=== PATIENT | male | born 1985 | race Caucasian/White ===

== ENCOUNTER 2022-01-23 18:23 | Inpatient (IN) | payer MEDICAID ==
[~2022-01-23] VITALS: Ht 165.1 cm; Wt 55.4 kg
[2022-01-23 18:51] LABS: ABG BASE EXCESS 3.6 mmol/L; ABG HCO3 26.9 mmol/L; ABG PH 7.492 (7.350-7.450); ABG SITE RIGHT RADIAL; ABG TOTAL HEMOGLOBIN 10.7 G/dL (13.5-18.0); COHb 0.1 % (0.5-1.5); MetHb 0.3 % (0.0-1.5); O2Hb 90.9 % (94.0-97.0); VENT MODE VENT - A/C; VT, ABG 500 mL
--- NOTE | 2022-01-23 19:00 | NUR ---
started 20g IV left AC, rey bloods, Cultures, and lactic -- gave to blood and plasma laboratory assistant.
[2022-01-23 19:12] LABS: HEMATOCRIT 31.2 % (36.7-47.1); MEAN CORPUSCULAR VOLUME 90.5 fL (73.0-96.2); PLATELET COUNT (AUTO) 356 K/uL (152-348)
[2022-01-23 19:31] LABS: ALANINE AMINOTRANSFERASE 21 U/L (16-63); ALKALINE PHOSPHATASE 103 U/L (50-136); ASPARTATE AMINOTRANSFERASE 13 U/L (15-37); BILIRUBIN,DIRECT 0.1 mg/dL (0.0-0.2); BILIRUBIN,TOTAL 0.3 mg/dL (0.2-1.0); CARBON DIOXIDE 28 mmol/L (21-32); CHLORIDE 96 mmol/L (98-107); CREATININE 0.7 mg/dL (0.6-1.3); GLUCOSE 129 mg/dL (74-106); POTASSIUM 4.4 mmol/L (3.5-5.1); TOTAL PROTEIN, SERUM 8.3 g/dL (6.4-8.2); UREA NITROGEN, BLOOD 17 mg/dL (7-18)
[2022-01-23] MEDS ORDERED: ATOV750O4 GT (20:03)
[2022-01-23] MEDS ORDERED: ACET-2154 GT (20:03)
[2022-01-23] MEDS ORDERED: LEVE500S9 GT (20:03)
[2022-01-23] MEDS ORDERED: ASCO500C18 GT (20:03)
[2022-01-23] MEDS ORDERED: POLY17PO4 GT (20:03)
[2022-01-23] MEDS ORDERED: MULT-594 GT (20:03)
[2022-01-23] MEDS ORDERED: FAMO20TA8 GT (20:03)
[2022-01-23] MEDS ORDERED: FOLI1TAB94 GT (20:03)
[2022-01-23] MEDS ORDERED: CYAN10006 IM (20:03)
[2022-01-23] MEDS ORDERED: PROP20TA7 GT (20:03)
[2022-01-23] MEDS ORDERED: BICT1TAB GT (20:03)
[2022-01-23] MEDS ORDERED: CLIN300C12 GT (20:03)
[2022-01-23] MEDS ORDERED: [UNRECOGNIZED DRUG - CODE] OP (20:03)
[2022-01-23] MEDS ORDERED: FLUC10SU GT (20:03)
[2022-01-23] MEDS ORDERED: EPOE1VIA12 IJ (20:03)
[2022-01-23] MEDS ORDERED: SCOP1PAT13 TD (20:03)
[2022-01-23] MEDS ORDERED: BISA10SU61 RC (20:03)
[2022-01-23] MEDS ORDERED: norco GT (20:03)
[2022-01-23] MEDS ORDERED: CEFTRIAXONE 2 G in IV DEXTROSE 5% 100 ML IV ONE (20:15)
[2022-01-23] MEDS ORDERED: VANCOMYCIN IV 1,000 MG in IV DEXTROSE 5% 250 ML IV ONE (20:15)
[2022-01-23] MEDS ORDERED: DEXAMETHASONE SOD PHOSPHATE 4 MG INJ IV ONE (20:15)
[2022-01-23] MEDS ORDERED: IV NORMAL SALINE 1000 ML BAG IV ONE (20:15)
[2022-01-23] MEDS ORDERED: CEFTRIAXONE /D5W 50ML IVPB **ER PYXIS IV ONE (20:38)
[2022-01-23] MEDS ORDERED: DEXAMETHASONE SOD PHOSPHATE 10 MG INJ ONE (20:38)
--- NOTE | 2022-01-23 21:16 | NUR ---
phone # of mother
[2022-01-23] MEDS ORDERED: VANCOMYCIN IV 200 ML ONE (21:35)
[2022-01-23] MEDS ORDERED: ONDANSETRON 4 MG/2 ML VIAL IV PRN (22:15)
[2022-01-23] MEDS ORDERED: ACETAMINOPHEN 650 MG SUPP.RECT RC PRN (22:15)
[2022-01-23] MEDS ORDERED: MORPHINE SULFATE 2 MG/1 ML DISP.SYRIN IV PRN (22:15)
[2022-01-23] MEDS ORDERED: MAGNESIUM HYDROXIDE 30 ML LIQUID UDC PO PRN (22:15)
[2022-01-23] MEDS ORDERED: REMEDY ESSENTIAL ZINC PASTE 113 GM TP PRN (22:15)
[2022-01-23] MEDS ORDERED: HYDROCODONE/APAP 5-325MG TABLET GT PRN (22:15)
--- NOTE | 2022-01-24 01:48 | NUR ---
report given to Megan DUPONT
[2022-01-24 02:55] VITALS: BP 131/81
--- NOTE | 2022-01-24 02:55 | NUR ---
RECEIVED PATIENT VIA GURNEY. ADMITTED TO ROOM 305 -TELEMETRY, UNDER CARE OF MIHIR RAMOS EROSION CONTROL COORDINATOR FOR FACILITY ACQUIRED PNEUMONIA. PATIENT IS NONVERBAL BUT HAS EYE OPENING RESPONSE TO PAIN. ON MECHANICAL VENTILATOR, SATURATING AT 97%. ATTACHED TO TELEMETRY, SHOWING SINUS RHYTHM. WITH GTUBE, PATENT AND INTACT. WITH KELLY CATHETER, DRAINING CLEAR YELLOW URINE. IV ACCESS TO THE L AC GAUGE 20, STARTED ON NS AT 75CC/HR. SKIN ISSUES NOTED, PHOTOS TAKEN AND ATTACHED TO CHART. WOUND CONSULT ORDERED. [employer] MATTRESS ORDERED. SAFETY AND ASPIRATION PRECAUTIONS IN PLACE .WILL CONTINUE TO MONITOR.
--- NOTE | 2022-01-24 03:02 | NUR ---
pt taken to room 305 via edgardo with RT.
[2022-01-24] MEDS: IV NS 1000 ML 1,000 ML IV PRN (03:40)
[2022-01-24] MEDS: ENOXAPARIN SODIUM 40 MG/0.4 ML DISP.SYRIN SQ SCH ×2 (03:52→20:33)
[2022-01-24 06:03] LABS: HEMATOCRIT 26.7 % (36.7-47.1); MEAN CORPUSCULAR HEMOGLOBIN 29.3 uug (23.8-33.4); PLATELET COUNT (AUTO) 282 K/uL (152-348)
--- NOTE | 2022-01-24 06:26 | NUR ---
NO ACUTE DISTRESS NOTED DURING SHIFT. URINE COLLECTED AND SENT TO LAB. SAFETY PRECAUTIONS MAINTAINED WILL ENDORSE TO DAYSHIFT.
[2022-01-24 06:36] LABS: CARBON DIOXIDE 25 mmol/L (21-32); CHLORIDE 100 mmol/L (98-107); CREATININE 0.5 mg/dL (0.6-1.3); GLUCOSE 153 mg/dL (74-106); POTASSIUM 4.1 mmol/L (3.5-5.1); UREA NITROGEN, BLOOD 13 mg/dL (7-18)
[2022-01-24 07:16] LABS: *BILIRUBIN,URIN NEGATIVE (NEGATIVE); *BLOOD, URINE 3+ (NEGATIVE); *CLARITY,URINE CLOUDY (CLEAR); *COLOR,URINE YELLOW (YELLOW); *KETONES,URINE NEGATIVE (NEGATIVE); *UROBILINOGEN,URINE 0.2 E.U./dl (NORMAL); LEUKOCYTE ESTERASE ,URINE NEGATIVE (NEGATIVE); NITRITE, URINE NEGATIVE (NEGATIVE); PH,URINE 7.5 (5.0-8.0); UGLUCOSE NEGATIVE (NEGATIVE)
[2022-01-24 07:28] LABS: RBC,URINE 50-80 /HPF (0-3)
[2022-01-24 07:29] LABS: BACTERIA,URINE FEW /HPF (NONE SEEN); RED BLOOD CELL CASTS,URINE 0-3 /LPF (NONE SEEN); SQUAMOUS EPITHELIAL CELL,UR FEW /HPF (NONE SEEN); WBC,URINE 0-3 /HPF (0-3)
[2022-01-24] MEDS ORDERED: MIRALAX 17 GM POWD.PACK GT PRN (08:30)
[2022-01-24] MEDS ORDERED: ACETAMINOPHEN 325 MG TABLET-SA PATIENTS-PAIN ONLY GT PRN (08:30)
[2022-01-24] MEDS ORDERED: BISACODYL 10 MG SUPP.RECT RC PRN (08:30)
[2022-01-24] MEDS ORDERED: PANTOPRAZOLE SODIUM 40 MG VIAL IV SCH (09:00)
[2022-01-24] MEDS ORDERED: ATOVAQUONE 750 MG GT SCH (09:00)
[2022-01-24] MEDS ORDERED: CEFEPIME HCL 1 G in IV DEXTROSE 5% 50 ML IV SCH (09:00)
[2022-01-24] MEDS ORDERED: levETIRAcetam 500 MG/5 ML LIQUID UDC GT ONE (09:00)
[2022-01-24] MEDS ORDERED: LEVETIRACETAM 1500 MG GT SCH (09:00)
[2022-01-24] MEDS ORDERED: Bictegrav/Emtricit/Tenofov Ala (Biktarvy 50-200-25 mg Ta GT SCH (09:00)
[2022-01-24] MEDS: CEFEPIME HCL 2 G in IV DEXTROSE 5% 100 ML IV SCH ×2 (09:41→20:31)
[2022-01-24] MEDS: FOLIC ACID 1 MG TABLET GT SCH (09:51)
[2022-01-24] MEDS: FAMOTIDINE 20 MG TABLET GT SCH (09:52)
[2022-01-24] MEDS: VANCOMYCIN IV 1,000 MG in IV DEXTROSE 5% 250 ML IV SCH ×2 (09:52→22:22)
[2022-01-24 11:00] VITALS: BP 132/80
[2022-01-24] MEDS: SCOPOLAMINE PATCH 1 MG/72 HRS PATCH TD SCH (11:12)
[2022-01-24] MEDS: BIKTARVY GT SCH (13:16)
[2022-01-24] MEDS: ACETAMINOPHEN 650 MG/20.3 ML LIQUID UDC GT PRN (13:16)
[2022-01-24] MEDS: [UNRECOGNIZED DRUG - OTHER] GT SCH (13:16)
[2022-01-24] MEDS: SODIUM HYPOCHLORITE 0.25% (HALF STRENGTH) 480 ML BOTTLE TOP SCH (13:16)
[2022-01-24] MEDS: PROPRANOLOL HCL 20 MG TABLET GT SCH ×2 (13:18→22:23)
--- NOTE | 2022-01-24 14:54 | NUR ---
Pt is nonverbal, upper and lower extremities stiff. DVT pumps placed on patient. Family at bedside. Wound consult complete, pt will have debridement tomorrow for right ischium and a biopsy for the left forearm. Consents have been signed by pt's mother at bedside. Oral care done Q2, suctioned as needed. Comfort measures provided. Will continue to monitor. Per mother, prior to admission at [facility], pt was healthy 4 months ago, he was complaining of severe headache and went to [facility]. There, they did an MRI and spinal tap due to increased intracranial pressure and removed cerebrospinal fluid several times. Pt's heart stopped for 26 minutes and he became comatose and vent dependent afterwords.
[2022-01-24 16:00] VITALS: BP 142/90
[2022-01-24] MEDS: ATOVAQUONE 1500 MG GT SCH (17:03)
[2022-01-24] MEDS: [UNRECOGNIZED DRUG - OTHER] GT SCH (17:03)
--- NOTE | 2022-01-24 19:15 | NUR ---
Received patient on bed, alert, open his eyes when call, no verbal response, with decortication of both upper extremities, stiffness of both lower extremities noted. Not in distress, for suctioning PRN. No signs of pain noted. Repositioned done.
[2022-01-24 20:00] VITALS: BP 144/75
[2022-01-24] MEDS: levETIRAcetam 500 MG/5 ML LIQUID UDC GT SCH (22:23)
[2022-01-25] VITALS: BP 149/94
[2022-01-25 04:00] VITALS: BP 140/67
[2022-01-25] MEDS: PROPRANOLOL HCL 20 MG TABLET GT SCH ×3 (05:26→22:57)
--- NOTE | 2022-01-25 06:16 | NUR ---
Not in respiratory distress, suctioning of oral and tracheal secretions PRN, repositioned every 2 hours. Dressing of wound done as ordered. Patient in fair condition.
[2022-01-25 06:27] LABS: HEMATOCRIT 24.2 % (36.7-47.1); MEAN CORPUSCULAR HEMOGLOBIN 29.6 uug (23.8-33.4); MEAN CORPUSCULAR VOLUME 90.9 fL (73.0-96.2); PLATELET COUNT (AUTO) 249 K/uL (152-348)
[2022-01-25] MEDS ORDERED: SILVER NITRATE APPLICATOR STICK EACH TP ONE (06:30)
[2022-01-25] MEDS ORDERED: LIDOCAINE 1%-EPI 1:100,000 20 ML VIAL IJ PRN (06:30)
[2022-01-25 06:40] LABS: CARBON DIOXIDE 28 mmol/L (21-32); CHLORIDE 104 mmol/L (98-107); CREATININE 0.5 mg/dL (0.6-1.3); GLUCOSE 113 mg/dL (74-106); POTASSIUM 3.3 mmol/L (3.5-5.1); UREA NITROGEN, BLOOD 11 mg/dL (7-18)
[2022-01-25] MEDS ORDERED: SILVER NITRATE APPLICATOR STICK EACH TP PRN (07:47)
[2022-01-25] MEDS: CEFEPIME HCL 2 G in IV DEXTROSE 5% 100 ML IV SCH ×2 (09:05→22:52)
[2022-01-25] MEDS: POTASSIUM CHLORIDE 50 ML IV SCH ×4 (09:05→12:25)
[2022-01-25] MEDS: FAMOTIDINE 20 MG TABLET GT SCH (09:11)
[2022-01-25] MEDS: FOLIC ACID 1 MG TABLET GT SCH (09:11)
[2022-01-25] MEDS: levETIRAcetam 500 MG/5 ML LIQUID UDC GT SCH ×2 (09:12→22:51)
[2022-01-25] MEDS: [UNRECOGNIZED DRUG - OTHER] GT SCH ×2 (09:12→17:51)
[2022-01-25] MEDS: ATOVAQUONE 1500 MG GT SCH ×2 (09:12→17:51)
[2022-01-25] MEDS: BIKTARVY GT SCH (09:13)
[2022-01-25] MEDS: [UNRECOGNIZED DRUG - OTHER] GT SCH (09:13)
[2022-01-25] MEDS: ACETAMINOPHEN 650 MG/20.3 ML LIQUID UDC GT PRN (09:13)
[2022-01-25] MEDS: SODIUM HYPOCHLORITE 0.25% (HALF STRENGTH) 480 ML BOTTLE TOP SCH (09:15)
[2022-01-25] MEDS: VANCOMYCIN IV 1,000 MG in IV DEXTROSE 5% 250 ML IV SCH ×2 (10:19→22:52)
[2022-01-25 12:00] VITALS: BP 142/94
[2022-01-25] MEDS: IPRATROPIUM BROMIDE 0.5 MG/2.5 ML NEBU NEB PRN ×3 (15:51→23:26)
[2022-01-25] MEDS: ALBUTEROL SULFATE 2.5 MG/3 ML NEBU NEB PRN ×3 (15:51→23:26)
--- NOTE | 2022-01-25 16:00 | NUR ---
Biopsy and debridement done today.
[2022-01-25 16:12] VITALS: BP 146/89
--- NOTE | 2022-01-25 16:57 | NUR ---
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
[2022-01-25] MEDS ORDERED: EPOETIN ALFA-EPBX 10,000 UNIT/ML VIAL IV SCH (18:00)
[2022-01-25] MEDS ORDERED: EPOETIN ALFA 10,000 UNITS/ML VIAL IV SCH (18:00)
[2022-01-25] MEDS: GLUCERNA 1.2 1000ML LIQUID GT PRN (18:10)
[2022-01-25] MEDS: IV NS 1000 ML 1,000 ML IV PRN (18:42)
--- NOTE | 2022-01-25 19:30 | NUR ---
rounds made patient in bed . vent dependent tolerating vent setting no respiratory distress noted . patient brother and sister in law at b/s questions answered .
[2022-01-25 20:25] VITALS: BP 133/90
--- NOTE | 2022-01-25 20:30 | NUR ---
incontinent on stool had a large brownish colored soft stool . changed soiled linens and gown . right and left buttocks wound care dressing done and follow wound care treatment . placed air loss mattress with survey operations director help .
[2022-01-25] MEDS: THERAHONEY GEL 1.5 OZ TUBE TOP SCH (21:15)
--- NOTE | 2022-01-25 21:17 | NUR ---
informed respiratory therapist patient need respiratory culture via trach aspirate for gram stain ,obtained sample and specimen send to lab .
--- NOTE | 2022-01-25 22:00 | NUR ---
seen by infectious disease FURNACE FEEDER TASHA with orders .
[2022-01-25] MEDS ORDERED: FLUCONAZOLE 200 MG TABLET PO SCH (22:30)
[2022-01-25] MEDS: MUPIROCIN 2% OINT 22 GM TUBE NS SCH (22:51)
[2022-01-25] MEDS: ENOXAPARIN SODIUM 40 MG/0.4 ML DISP.SYRIN SQ SCH (22:59)
[2022-01-26] MEDS ORDERED: FLUCONAZOLE 100 MG TABLET ONE (00:11)
[2022-01-26 00:15] VITALS: BP 106/81
[2022-01-26] MEDS: ALBUTEROL SULFATE 2.5 MG/3 ML NEBU NEB PRN ×6 (03:34→23:12)
[2022-01-26] MEDS: IPRATROPIUM BROMIDE 0.5 MG/2.5 ML NEBU NEB PRN ×6 (03:34→23:12)
[2022-01-26 04:28] VITALS: BP 120/85
[2022-01-26] MEDS: PROPRANOLOL HCL 20 MG TABLET GT SCH ×3 (05:28→21:08)
[2022-01-26] MEDS: FOLIC ACID 1 MG TABLET GT SCH (08:42)
[2022-01-26] MEDS: [UNRECOGNIZED DRUG - OTHER] GT SCH ×2 (08:42→18:14)
[2022-01-26] MEDS: ATOVAQUONE 1500 MG GT SCH ×2 (08:42→18:14)
[2022-01-26] MEDS: FAMOTIDINE 20 MG TABLET GT SCH (08:42)
[2022-01-26] MEDS: BIKTARVY GT SCH (08:43)
[2022-01-26] MEDS: [UNRECOGNIZED DRUG - OTHER] GT SCH (08:43)
[2022-01-26] MEDS: CEFEPIME HCL 2 G in IV DEXTROSE 5% 100 ML IV SCH ×2 (08:43→20:38)
[2022-01-26] MEDS: MUPIROCIN 2% OINT 22 GM TUBE NS SCH ×2 (08:43→20:39)
[2022-01-26] MEDS: THERAHONEY GEL 1.5 OZ TUBE TOP SCH (09:00)
[2022-01-26] MEDS: SODIUM HYPOCHLORITE 0.25% (HALF STRENGTH) 480 ML BOTTLE TOP SCH (09:00)
[2022-01-26 09:09] LABS: CARBON DIOXIDE 29 mmol/L (21-32); CHLORIDE 103 mmol/L (98-107); CREATININE 0.5 mg/dL (0.6-1.3); GLUCOSE 108 mg/dL (74-106); POTASSIUM 3.6 mmol/L (3.5-5.1); UREA NITROGEN, BLOOD 11 mg/dL (7-18)
[2022-01-26 09:10] LABS: MEAN CORPUSCULAR HEMOGLOBIN 29.7 uug (23.8-33.4); MEAN CORPUSCULAR VOLUME 91.1 fL (73.0-96.2); PLATELET COUNT (AUTO) 291 K/uL (152-348)
--- NOTE | 2022-01-26 10:00 | NUR ---
RIGHT BUTTOCK AND L ISCHIUM WOUND TREATMENT DONE.
[2022-01-26] MEDS: levETIRAcetam 500 MG/5 ML LIQUID UDC GT SCH ×2 (10:06→20:38)
[2022-01-26] MEDS: VANCOMYCIN IV 1,000 MG in IV DEXTROSE 5% 250 ML IV SCH ×2 (10:30→21:08)
[2022-01-26 11:55] VITALS: BP 115/80
[2022-01-26 16:00] VITALS: BP 132/71
[2022-01-26 19:48] VITALS: BP 112/74
[2022-01-26] MEDS: FLUCONAZOLE 200 MG TABLET PO SCH (20:38)
[2022-01-26] MEDS: ENOXAPARIN SODIUM 40 MG/0.4 ML DISP.SYRIN SQ SCH (20:43)
[2022-01-26] MEDS: IV NS 1000 ML 1,000 ML IV PRN (22:55)
[2022-01-27 00:02] VITALS: BP 109/77
[2022-01-27] MEDS: IPRATROPIUM BROMIDE 0.5 MG/2.5 ML NEBU NEB PRN ×6 (03:15→23:07)
[2022-01-27] MEDS: ALBUTEROL SULFATE 2.5 MG/3 ML NEBU NEB PRN ×6 (03:15→23:07)
[2022-01-27 04:32] VITALS: BP 111/79
[2022-01-27] MEDS: PROPRANOLOL HCL 20 MG TABLET GT SCH ×3 (05:43→22:07)
[2022-01-27 06:25] LABS: HEMATOCRIT 24.4 % (36.7-47.1); MEAN CORPUSCULAR HEMOGLOBIN 29.7 uug (23.8-33.4); MEAN CORPUSCULAR VOLUME 91.1 fL (73.0-96.2); PLATELET COUNT (AUTO) 228 K/uL (152-348)
[2022-01-27 06:29] LABS: CARBON DIOXIDE 25 mmol/L (21-32); CHLORIDE 102 mmol/L (98-107); CREATININE 0.5 mg/dL (0.6-1.3); GLUCOSE 115 mg/dL (74-106); MAGNESIUM 1.9 mg/dL (1.8-2.4); PHOSPHOROUS 3.9 mg/dL (2.5-4.9); POTASSIUM 3.4 mmol/L (3.5-5.1); UREA NITROGEN, BLOOD 12 mg/dL (7-18)
[2022-01-27] MEDS: [UNRECOGNIZED DRUG - OTHER] GT SCH ×2 (09:06→17:25)
[2022-01-27] MEDS: ATOVAQUONE 1500 MG GT SCH ×2 (09:06→17:25)
[2022-01-27] MEDS: levETIRAcetam 500 MG/5 ML LIQUID UDC GT SCH ×2 (09:06→21:00)
[2022-01-27] MEDS: FOLIC ACID 1 MG TABLET GT SCH (09:06)
[2022-01-27] MEDS: FAMOTIDINE 20 MG TABLET GT SCH (09:06)
[2022-01-27] MEDS: CEFEPIME HCL 2 G in IV DEXTROSE 5% 100 ML IV SCH ×2 (09:07→21:00)
[2022-01-27] MEDS: SODIUM HYPOCHLORITE 0.25% (HALF STRENGTH) 480 ML BOTTLE TOP SCH (09:07)
[2022-01-27] MEDS: THERAHONEY GEL 1.5 OZ TUBE TOP SCH (09:07)
[2022-01-27] MEDS: MUPIROCIN 2% OINT 22 GM TUBE NS SCH ×2 (09:07→21:00)
[2022-01-27] MEDS ORDERED: POTASSIUM CHLORIDE 20 MEQ POWDER PACKET GT ONE (11:00)
[2022-01-27] MEDS: VANCOMYCIN IV 1,000 MG in IV DEXTROSE 5% 250 ML IV SCH ×2 (11:00→22:07)
[2022-01-27] MEDS: SCOPOLAMINE PATCH 1 MG/72 HRS PATCH TD SCH (11:40)
[2022-01-27 12:50] VITALS: BP 108/74
[2022-01-27 16:39] VITALS: BP 106/77
--- NOTE | 2022-01-27 17:02 | NUR ---
WOUND CULTURE COLLECTED AND SENT TO THE LAB
[2022-01-27 20:07] VITALS: BP 113/73
[2022-01-27] MEDS: FLUCONAZOLE 200 MG TABLET PO SCH (21:00)
[2022-01-27] MEDS: ENOXAPARIN SODIUM 40 MG/0.4 ML DISP.SYRIN SQ SCH (21:01)
[2022-01-28 00:12] VITALS: BP 109/68
[2022-01-28 04:18] VITALS: BP 117/78
--- NOTE | 2022-01-28 05:08 | NUR ---
uneventful night. pt tolerated feeding well; wound treatment done; no acute distress noted; repositioned pt q2h.
[2022-01-28] MEDS: PROPRANOLOL HCL 20 MG TABLET GT SCH ×3 (06:25→22:10)
[2022-01-28] MEDS: ALBUTEROL SULFATE 2.5 MG/3 ML NEBU NEB PRN ×5 (07:43→23:35)
[2022-01-28] MEDS: IPRATROPIUM BROMIDE 0.5 MG/2.5 ML NEBU NEB PRN ×5 (07:43→23:34)
--- NOTE | 2022-01-28 08:00 | NUR ---
received on trache to vent with same settings, responds to tactile stimuli, on continuous pulse oximetry sat at 100%, head of bed elevated, GT clamped at this time as per schedule, no distress noted, safety measures maintained, repositioned for comfort
[2022-01-28] MEDS: FOLIC ACID 1 MG TABLET GT SCH (09:43)
[2022-01-28] MEDS: levETIRAcetam 500 MG/5 ML LIQUID UDC GT SCH ×2 (09:43→20:07)
[2022-01-28] MEDS: FAMOTIDINE 20 MG TABLET GT SCH (09:43)
[2022-01-28] MEDS: MUPIROCIN 2% OINT 22 GM TUBE NS SCH ×2 (09:46→20:08)
[2022-01-28] MEDS: THERAHONEY GEL 1.5 OZ TUBE TOP SCH (09:47)
[2022-01-28] MEDS: SODIUM HYPOCHLORITE 0.25% (HALF STRENGTH) 480 ML BOTTLE TOP SCH (09:47)
[2022-01-28 09:53] LABS: MEAN CORPUSCULAR HEMOGLOBIN 29.6 uug (23.8-33.4); MEAN CORPUSCULAR VOLUME 91.5 fL (73.0-96.2); PLATELET COUNT (AUTO) 257 K/uL (152-348)
[2022-01-28] MEDS: CEFEPIME HCL 2 G in IV DEXTROSE 5% 100 ML IV SCH ×2 (09:57→20:07)
[2022-01-28 10:01] LABS: MAGNESIUM 1.9 mg/dL (1.8-2.4); PHOSPHOROUS 3.6 mg/dL (2.5-4.9)
[2022-01-28 10:02] LABS: CARBON DIOXIDE 29 mmol/L (21-32); CHLORIDE 103 mmol/L (98-107); CREATININE 0.5 mg/dL (0.6-1.3); GLUCOSE 109 mg/dL (74-106); POTASSIUM 3.8 mmol/L (3.5-5.1); UREA NITROGEN, BLOOD 11 mg/dL (7-18); VANCOMYCIN,TROUGH 20.4 ug/mL (12.0-20.0)
[2022-01-28] MEDS: [UNRECOGNIZED DRUG - OTHER] GT SCH ×2 (10:05→17:16)
[2022-01-28] MEDS: ATOVAQUONE 1500 MG GT SCH ×2 (10:05→17:16)
[2022-01-28] MEDS: GLUCERNA 1.2 1000ML LIQUID GT PRN (11:06)
[2022-01-28 11:33] LABS: EOSINOPHILS % (MANUAL) 1 % (0-8); LYMPHOCYTES % (MANUAL) 24 % (20-40); MONOCYTES % (MANUAL) 10 % (2-10); NEUTROPHILS % (MANUAL) 65 % (42-75)
[2022-01-28 12:03] VITALS: BP 110/79
--- NOTE | 2022-01-28 13:00 | NUR ---
right and left ischium wounds treatment done ad ordered, left arm wound done as well, repositioned to side with pillows for support, mom at bedside, tolerating tube fdg well, no residual noted
[2022-01-28] MEDS: BIKTARVY GT SCH (14:48)
[2022-01-28] MEDS: VANCOMYCIN IV 750 MG in IV DEXTROSE 5% 250 ML IV SCH (15:01)
[2022-01-28 16:00] VITALS: BP 105/78
--- NOTE | 2022-01-28 18:03 | NUR ---
no distress noted, vent on same settings- sat at 99%, all needs attended and met, repositioned q 2h for comfort, tolerating tube feeding well, no residual noted, all needs attended and met
--- NOTE | 2022-01-28 19:30 | NUR ---
rounds made patient in bed , open eyes non verbal and doesn't follow commands upper and lower extremities flaccid no spontaneous movement . trach to vent Portex no . 7 ac18 tv 500 peep 5 fio2 40% tolerating vent settings no respiratory distress noted, no s/s of respiratory distress tube feeding Glucerna 1.2 in progress via the peg rate 60 ml/hr . f/c to bsd .
--- NOTE | 2022-01-28 19:35 | NUR ---
Sudheer HYLTON NURSE came and inserted left upper arm midline no.18
[2022-01-28] MEDS: FLUCONAZOLE 200 MG TABLET PO SCH (20:08)
[2022-01-28] MEDS: ENOXAPARIN SODIUM 40 MG/0.4 ML DISP.SYRIN SQ SCH (20:14)
--- NOTE | 2022-01-28 20:15 | NUR ---
patient son and patient sister in law came and questions answered .stayed in the room .
[2022-01-28 20:42] VITALS: BP 112/80
[2022-01-29 00:14] VITALS: BP 121/82
[2022-01-29] MEDS: VANCOMYCIN IV 750 MG in IV DEXTROSE 5% 250 ML IV SCH ×2 (02:22→14:26)
--- NOTE | 2022-01-29 03:30 | NUR ---
am care done with cnas help ,changed soiled linens and gown incontinent of stool ,large amt soft brownish stool . wound dressing done and follow wound care treatment .
[2022-01-29 05:00] VITALS: BP 112/80
[2022-01-29] MEDS: PROPRANOLOL HCL 20 MG TABLET GT SCH ×3 (05:43→23:05)
[2022-01-29 06:16] LABS: HEMATOCRIT 27.7 % (36.7-47.1); MEAN CORPUSCULAR HEMOGLOBIN 29.4 uug (23.8-33.4); MEAN CORPUSCULAR VOLUME 91.3 fL (73.0-96.2); PLATELET COUNT (AUTO) 234 K/uL (152-348)
[2022-01-29 06:42] LABS: CARBON DIOXIDE 31 mmol/L (21-32); CHLORIDE 102 mmol/L (98-107); CREATININE 0.6 mg/dL (0.6-1.3); GLUCOSE 115 mg/dL (74-106); UREA NITROGEN, BLOOD 10 mg/dL (7-18)
[2022-01-29] MEDS: ALBUTEROL SULFATE 2.5 MG/3 ML NEBU NEB PRN ×5 (07:28→23:36)
[2022-01-29] MEDS: IPRATROPIUM BROMIDE 0.5 MG/2.5 ML NEBU NEB PRN ×5 (07:28→23:36)
--- NOTE | 2022-01-29 07:49 | NUR ---
Awake, opens eyes. Trach to vent with settings of AC 18, TV 500, PEEP 5, FIO2 40%. GT intact.
[2022-01-29] MEDS: BIKTARVY GT SCH (09:03)
[2022-01-29] MEDS: FOLIC ACID 1 MG TABLET GT SCH (09:03)
[2022-01-29] MEDS: CEFEPIME HCL 2 G in IV DEXTROSE 5% 100 ML IV SCH ×2 (09:03→20:42)
[2022-01-29] MEDS: levETIRAcetam 500 MG/5 ML LIQUID UDC GT SCH ×2 (09:03→20:42)
[2022-01-29] MEDS: [UNRECOGNIZED DRUG - OTHER] GT SCH ×2 (09:03→17:03)
[2022-01-29] MEDS: ATOVAQUONE 1500 MG GT SCH ×2 (09:03→17:03)
[2022-01-29] MEDS: FAMOTIDINE 20 MG TABLET GT SCH (09:03)
[2022-01-29] MEDS: SODIUM HYPOCHLORITE 0.25% (HALF STRENGTH) 480 ML BOTTLE TOP SCH (09:04)
[2022-01-29] MEDS: MUPIROCIN 2% OINT 22 GM TUBE NS SCH ×2 (09:04→20:32)
[2022-01-29] MEDS: THERAHONEY GEL 1.5 OZ TUBE TOP SCH (09:05)
--- NOTE | 2022-01-29 09:30 | NUR ---
Vomited after giving meds, maybe coughing induced. Suctioned and head elevated more. With BM to liquid stool. Incontinence care and bed bath given. Wound care done as ordered. Repositioned comfortably.
[2022-01-29 09:55] LABS: BILIRUBIN,DIRECT 0.1 mg/dL (0.0-0.2); BILIRUBIN,TOTAL 0.2 mg/dL (0.2-1.0)
[2022-01-29] MEDS: GLUCERNA 1.2 1000ML LIQUID GT PRN (10:25)
--- NOTE | 2022-01-29 12:00 | NUR ---
Secretions suctions. Turned to sides at interval
[2022-01-29 12:13] VITALS: BP 114/79
--- NOTE | 2022-01-29 13:00 | NUR ---
CD4 requested with bypass paper sent to lab. Mirella JUAREZ seen patient explained to mother at bedside. Consent for resection of left forearm mass with skin graft versus flap reconstruction not yet by mother until she speaks with Dr. Adhikari
--- NOTE | 2022-01-29 14:00 | NUR ---
With BM to loose stool in small amount. Incontinence care done. Wound care done. Repositioned comfortably
[2022-01-29 15:59] VITALS: BP 120/82
--- NOTE | 2022-01-29 17:25 | NUR ---
PT REMAINS STABLE ON CMV, PORTEX # 7 TRACH IS PATENT AND SECURE. IN-LINE TX'S GIVEN Q4 PER PT'S MOTHER REQUEST. SPO2 AND RESPIRATIONS WNL. CONTINUOUS PULSE OX AT BEDSIDE. NO SIGNS OR SYMPTOMS OF RESPIRATORY DISTRESS NOTED DURING SHIFT. TRACH/ORAL SXN PRN. WILL CONTINUE TO MONITOR AND FOLLOW CURRENT RESPIRATORY TREATMENTS ORDERED.
[2022-01-29] MEDS ORDERED: EPOETIN ALFA-EPBX 10,000 UNIT/ML VIAL SQ SCH (18:00)
--- NOTE | 2022-01-29 18:25 | NUR ---
Secretions suctioned. Oral care done. Repositioned comfortably.
--- NOTE | 2022-01-29 19:35 | NUR ---
Patient non verbal, hob elevated, GTF tolerate well. no residual noted, no vomiting noted, cont abx for PNA with adverse reaction noted, Patient on tele monitor sinus rhythm, on vent as ordered, no sob no chest pain noted, no s/s of pain, cont to monitor.
[2022-01-29 20:00] VITALS: BP 108/67
[2022-01-29] MEDS: FLUCONAZOLE 200 MG TABLET PO SCH (20:32)
[2022-01-29] MEDS: ENOXAPARIN SODIUM 40 MG/0.4 ML DISP.SYRIN SQ SCH (20:53)
[2022-01-30] VITALS: BP 116/79
[2022-01-30] MEDS: IPRATROPIUM BROMIDE 0.5 MG/2.5 ML NEBU NEB PRN ×6 (03:37→23:35)
[2022-01-30] MEDS: ALBUTEROL SULFATE 2.5 MG/3 ML NEBU NEB PRN ×6 (03:37→23:35)
[2022-01-30 04:00] VITALS: BP 111/72
[2022-01-30] MEDS: VANCOMYCIN IV 750 MG in IV DEXTROSE 5% 250 ML IV SCH ×2 (04:10→15:12)
[2022-01-30] MEDS: PROPRANOLOL HCL 20 MG TABLET GT SCH ×3 (06:24→21:33)
--- NOTE | 2022-01-30 06:41 | NUR ---
Patient non verbal, eyes open, no s/s of sob no s/s of chest pain, afebrile, hob elevated, on GTF tolerate well, no vomiting noted, no residual noted, turn and reposition, tx continue on multiple wounds, suctioned, as needed, cont abx for pna with no adverse reaction noted, cont to monitor.
[2022-01-30 06:54] LABS: HEMATOCRIT 28.9 % (36.7-47.1); MEAN CORPUSCULAR HEMOGLOBIN 29.6 uug (23.8-33.4); MEAN CORPUSCULAR VOLUME 91.1 fL (73.0-96.2); PLATELET COUNT (AUTO) 250 K/uL (152-348)
[2022-01-30 07:30] LABS: CARBON DIOXIDE 30 mmol/L (21-32); CHLORIDE 100 mmol/L (98-107); CREATININE 0.6 mg/dL (0.6-1.3); GLUCOSE 117 mg/dL (74-106); PHOSPHOROUS 3.7 mg/dL (2.5-4.9); UREA NITROGEN, BLOOD 9 mg/dL (7-18)
[2022-01-30 08:06] LABS: *BASOS 0 % (Not Estab.); *EOS 1 % (Not Estab.); *EOS ABSOLUTE 0.1 x10E3/uL (0.0-0.4); *HCT 29.4 % (37.5-51.0); *HGB 8.8 g/dL (13.0-17.7); *IMMATURE GRANULOCYTES 0.1 x10E3/uL (0.0-0.1); *IMMATURE GRANULOCYTES 1 % (Not Estab.); *LYMPHOCYTES 25 % (Not Estab.); *LYMPHOCYTES ABSOLUTE 1.2 x10E3/uL (0.7-3.1); *MCH 28.9 pg (26.6-33.0); *MCHC 29.9 g/dL (31.5-35.7); *MCV 96 fL (79-97); *MONOCYTES 7 % (Not Estab.); *MONOCYTES ABSOLUTE 0.3 x10E3/uL (0.1-0.9); *NEUTROPHILS 66 % (Not Estab.); *NEUTROPHILS ABSOLUTE 3.2 x10E3/uL (1.4-7.0); *PLT 245 x10E3/uL (150-450); *RBC 3.05 x10E6/uL (4.14-5.80); *RDW 17.1 % (11.6-15.4)
[2022-01-30 08:07] LABS: MAGNESIUM 1.9 mg/dL (1.8-2.4)
[2022-01-30] MEDS: ATOVAQUONE 1500 MG GT SCH ×2 (08:13→16:11)
[2022-01-30] MEDS: FAMOTIDINE 20 MG TABLET GT SCH (08:13)
[2022-01-30] MEDS: [UNRECOGNIZED DRUG - OTHER] GT SCH ×2 (08:13→16:11)
[2022-01-30] MEDS: BIKTARVY GT SCH (08:13)
[2022-01-30] MEDS: levETIRAcetam 500 MG/5 ML LIQUID UDC GT SCH ×2 (08:13→20:31)
[2022-01-30] MEDS: FOLIC ACID 1 MG TABLET GT SCH (08:13)
[2022-01-30] MEDS: THERAHONEY GEL 1.5 OZ TUBE TOP SCH (08:14)
[2022-01-30] MEDS: MUPIROCIN 2% OINT 22 GM TUBE NS SCH ×2 (08:14→20:31)
[2022-01-30] MEDS: CEFEPIME HCL 2 G in IV DEXTROSE 5% 100 ML IV SCH ×2 (08:14→20:30)
[2022-01-30] MEDS: SODIUM HYPOCHLORITE 0.25% (HALF STRENGTH) 480 ML BOTTLE TOP SCH (08:14)
[2022-01-30 09:06] LABS: *HELPER T-LYMPH MARKR(CD4)ABSO 37 /uL (359-1519); *HELPER T-LYNPH MARKER CD4)% 3.1 % (30.8-58.5)
[2022-01-30] MEDS: SCOPOLAMINE PATCH 1 MG/72 HRS PATCH TD SCH (11:19)
[2022-01-30 12:03] VITALS: BP 118/82
--- NOTE | 2022-01-30 12:12 | NUR ---
Patient's mother refusing resection of left forearm mass with skin graft verus flap reconstruction. Patient's mother stating she spoke to Dr. Barnes regarding her refusal of procedure. Will follow up and endorse information to PM nurse.
[2022-01-30 15:12] VITALS: BP 137/53
--- NOTE | 2022-01-30 18:05 | NUR ---
Patient tolerated care well throughout shift. Patient's mother at bedside during a majority of the shift. IV site patent and intact. G-Tube patent and intact. Wound care managed throughout shift with appropriate interventions. Bed left in lowest position. Comfort measures provided. Will endorse information to PM nurse.
--- NOTE | 2022-01-30 19:30 | NUR ---
Received patient lying in bed. Asleep. In no apparent distress. Trach with vent in place. NSR on tele with HR of 83/min. GT feeding infusing. Vee catheter intact and draining via gravity. Family at bedside. Contact precaution observed. Safety measure initiated and call light within reached.
[2022-01-30 20:00] VITALS: BP 121/78
[2022-01-30] MEDS: ENOXAPARIN SODIUM 40 MG/0.4 ML DISP.SYRIN SQ SCH (20:30)
[2022-01-30] MEDS: FLUCONAZOLE 200 MG TABLET PO SCH (20:30)
[2022-01-31] VITALS: BP 134/95
[2022-01-31] MEDS: IPRATROPIUM BROMIDE 0.5 MG/2.5 ML NEBU NEB PRN ×5 (03:35→19:37)
[2022-01-31] MEDS: ALBUTEROL SULFATE 2.5 MG/3 ML NEBU NEB PRN ×5 (03:35→19:37)
[2022-01-31 04:00] VITALS: BP 140/95
[2022-01-31] MEDS: GLUCERNA 1.2 1000ML LIQUID GT PRN (04:00)
--- NOTE | 2022-01-31 05:11 | NUR ---
In no acute distress. Suction secretions PRN and able to obtain whitish secretions. Gt feeding and flushing well tolerated. Vee catheter intact and draining via gravity. NSR on tele with HR of 98/min. Needs anticipated to and met. Safety measure maintained and call light within reached.
[2022-01-31] MEDS: PROPRANOLOL HCL 20 MG TABLET GT SCH ×2 (05:24→13:38)
[2022-01-31] MEDS: FOLIC ACID 1 MG TABLET GT SCH (08:04)
[2022-01-31] MEDS: CEFEPIME HCL 2 G in IV DEXTROSE 5% 100 ML IV SCH (08:04)
[2022-01-31] MEDS: FAMOTIDINE 20 MG TABLET GT SCH (08:04)
[2022-01-31] MEDS: SODIUM HYPOCHLORITE 0.25% (HALF STRENGTH) 480 ML BOTTLE TOP SCH (08:05)
[2022-01-31] MEDS: THERAHONEY GEL 1.5 OZ TUBE TOP SCH (08:05)
[2022-01-31] MEDS: BIKTARVY GT SCH (08:05)
[2022-01-31] MEDS: ATOVAQUONE 1500 MG GT SCH ×2 (08:05→16:17)
[2022-01-31] MEDS: [UNRECOGNIZED DRUG - OTHER] GT SCH ×2 (08:05→16:17)
[2022-01-31] MEDS: levETIRAcetam 500 MG/5 ML LIQUID UDC GT SCH (08:05)
[2022-01-31] MEDS ORDERED: ACIDOPHILUS/BULGARICUS CHEW TAB GT SCH (09:00)
[2022-01-31 11:07] VITALS: BP 122/89
[2022-01-31 14:59] VITALS: BP 115/79
[2022-01-31] MEDS ORDERED: CEFE2VIA3 IV (16:16)
[2022-01-31] MEDS ORDERED: ALBU2.5V7 NEB (16:16)
[2022-01-31] MEDS ORDERED: ACID1TAB4 GT (16:16)
--- NOTE | 2022-01-31 18:33 | NUR ---
Patient tolerated care well throughout shift. Patient to be discharged to [facility]. Report given to Cherri DUPONT at facility. Discharge education provided to patient's mother. Will endorse information to PM nurse. Scheduled seed cone picker at 1999.
== END 2022-01-31 20:10 | DRG 710 ==
LOC: ER 18:26 → TELE3 23:45
PROVIDERS: ADMIT Internal Medicine; ATTEND Internal Medicine
PROC: 5A1955Z Respiratory Ventilation, Greater than 96 Consecutive Hours (ICD-10-PCS; principal; 2022-01-23)
PROC: 0JBH0ZX Excision of Left Lower Arm Subcutaneous Tissue and Fascia, Open Approach, Diagnostic (ICD-10-PCS; 2022-01-25)
PROC: 0KBN3ZZ Excision of Right Hip Muscle, Percutaneous Approach (ICD-10-PCS; 2022-01-25)
PROC: B547ZZA Ultrasonography of Left Subclavian Vein, Guidance (ICD-10-PCS; 2022-01-28)
PROC: 05H633Z Insertion of Infusion Device into Left Subclavian Vein, Percutaneous Approach (ICD-10-PCS; 2022-01-28)
DX: A41.9 Sepsis, unspecified organism (principal); B20 Human immunodeficiency virus [HIV] disease; J96.21 Acute and chronic respiratory failure with hypoxia; G92.8 Other toxic encephalopathy; J69.0 Pneumonitis due to inhalation of food and vomit; G93.41 Metabolic encephalopathy; E43 Unspecified severe protein-calorie malnutrition; J15.6 Pneumonia due to other Gram-negative bacteria; L89.314 Pressure ulcer of right buttock, stage 4; R40.3 Persistent vegetative state; L89.896 Pressure-induced deep tissue damage of other site; L89.156 Pressure-induced deep tissue damage of sacral region; E87.2 Acidosis; D68.59 Other primary thrombophilia; D63.8 Anemia in other chronic diseases classified elsewhere; G40.909 Epilepsy, unspecified, not intractable, without status epilepticus; Z20.822 Contact with and (suspected) exposure to COVID-19; Z99.11 Dependence on respirator [ventilator] status; Z86.73 Personal history of transient ischemic attack (TIA), and cerebral infarction without residual deficits; Z93.1 Gastrostomy status; Z86.74 Personal history of sudden cardiac arrest; E88.09 Other disorders of plasma-protein metabolism, not elsewhere classified; R13.10 Dysphagia, unspecified; R53.2 Functional quadriplegia; Z74.09 Other reduced mobility; R22.32 Localized swelling, mass and lump, left upper limb; T17.990A Other foreign object in respiratory tract, part unspecified in causing asphyxiation, initial encounter; X58.XXXA Exposure to other specified factors, initial encounter; Y93.9 Activity, unspecified; Y92.129 Unspecified place in nursing home as the place of occurrence of the external cause; Y99.9 Unspecified external cause status; J98.11 Atelectasis; Z79.899 Other long term (current) drug therapy; C44.91 Basal cell carcinoma of skin, unspecified; N31.9 Neuromuscular dysfunction of bladder, unspecified; Z91.041 Radiographic dye allergy status; E87.6 Hypokalemia; G93.1 Anoxic brain damage, not elsewhere classified; Z74.01 Bed confinement status
CPT/HCPCS: 36415; 36600; 70030-TC; 70450; 71045; 83605; 83735; 84100; 84484; 85025; 86361; 87040; 87070; 87077; 87086; 93005; 93307; 94002; 94003; 94640; 94664; 94760; A4663; A6209; A6213; C9113; G0378; J0692; J0696; J0885; J1100; J1650; J3370; J3480; J3490; J3590; J7040; J7050